=== PATIENT | female | born 1975 | race Caucasian/White ===

== ENCOUNTER → 2018-04-15 | Outpatient (CLI) | payer OTHER | END | disposition home or self-care (01) | LOC: KCIC 14:29 | DX: M25.562 Pain in left knee (principal); M25.561 Pain in right knee; M79.672 Pain in left foot; M79.89 Other specified soft tissue disorders; R20.0 Anesthesia of skin | CPT/HCPCS: 73560; 73620 ==

== ENCOUNTER → 2018-04-21 | Outpatient (CLI) | payer OTHER | END | disposition home or self-care (01) | LOC: KCIC MAMMO 08:22 | DX: Z12.31 Encounter for screening mammogram for malignant neoplasm of breast (principal) | CPT/HCPCS: 77067 ==

== ENCOUNTER → 2018-04-30 | Outpatient (CLI) | payer OTHER | END | disposition home or self-care (01) | LOC: KCIC MAMMO 12:46 | DX: N64.89 Other specified disorders of breast (principal) | CPT/HCPCS: 76641; 77066 ==

== ENCOUNTER → 2018-10-30 | Outpatient (CLI) | payer OTHER ==
--- NOTE | 2018-10-30 15:53 | KCIC ---
Bilateral breast ultrasound: Reason for examination: Follow-up nodules. Comparison is made to previous study dated 04/30/2018. Ultrasound examination of the breast was performed bilaterally in the areas of previous sonographic concern and at the axilla. In the right breast, there continues to be 1.2 cm hypoechoic fibrocystic type lesion at the 10:00 position 5 cm from the nipple which is smaller than on previous exam. In the 11:00 position 3 cm from the nipple there continues to be a small 2.5 mm hypoechoic lesion which is unchanged. There is ductal ectasia in the retroareolar position 12:00 position. No suspicious lesions are seen in the right breast. No abnormal appearing lymph nodes are seen in the right axilla. In the left breast, there continues to be a small 3.5 mm cystic lesion at the 2:00 position 5.5 cm from the nipple which has decreased in size. In the 6:00 position 3 cm from the nipple, there continues to be 3.7 mm hypoechoic lesion consistent with a complicated cyst. In the 9:00 position 3.5 cm from the nipple, there continues to be a small 5 mm fibrocystic lesion which appears to be slightly smaller. No suspicious lesions are seen. No abnormal lymph nodes are seen in the axilla. IMPRESSION: Continued presence of benign-appearing cystic and fibrocystic lesions with interval improvement since previous exam. Recommend routine mammographic follow-up. BI-RADS Category 2: Benign. "Our facility is accredited by the [employer] Mammography Program." This patient's information has been entered into a reminder system for the patient to be notified with the results of her examination and a target date for the next mammogram. Electronically signed by: Gwendolyn Pereira MD (10/30/2018 3:50 PM) [place] [id number]
== END | disposition home or self-care (01) ==
LOC: KCIC US 12:50
PROVIDERS: ATTEND Nurse Practitioner
DX: R92.8 Other abnormal and inconclusive findings on diagnostic imaging of breast (principal)
CPT/HCPCS: 76641